=== PATIENT | female | born 1965 | race Asian ===

== ENCOUNTER 2016-07-10 15:37 | Emergency (ER) | payer OTHER ==
[2016-07-10 15:47] VITALS: BP 131/54; PULSE 90; TEMP 98; BMI 24.6
[2016-07-10] MEDS ORDERED: IBUPROFEN 400 MG TABLET (FP) PO ONE ×2 (16:01→16:04)
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
== END 2016-07-10 16:09 | disposition home or self-care (01) ==
LOC: JERFT 15:37
DX: S16.1XXA Strain of muscle, fascia and tendon at neck level, initial encounter (principal); S00.83XA Contusion of other part of head, initial encounter; Y04.2XXA Assault by strike against or bumped into by another person, initial encounter; Y93.89 Activity, other specified; Y92.239 Unspecified place in hospital as the place of occurrence of the external cause; Y99.0 Civilian activity done for income or pay
CPT/HCPCS: 99281-25